=== PATIENT | male | born 1995 | race African-American/Black ===

== ENCOUNTER 2018-01-19 16:43 | Emergency (ER) | payer SELFPAY ==
[~2018-01-19] VITALS: Ht 170.2 cm; Wt 65.0 kg
[~2018-01-19 16:43] MED LIST: ALLERGY MEDS; FLEX10TA PO
[2018-01-19 16:51] VITALS: BP 133/67; PULSE 90; RESP 20; TEMP 98.4; O2SAT 100
--- NOTE | 2018-01-19 17:11 | PD ---
HPI Chief Complaint: Edema Time Seen by Provider: 17:10 Travel History International Travel<30 days: No Contact w/Intl Traveler<30days: No Traveled to known affect area: No History of Present Illness HPI 22-year-old male presents emergency department for evaluation of reddened and swollen left foot. Patient does not offer any information as to how long it has been like this. He tells me he would just like it checked out. He does not answer any more my questions. PFSH Past Medical History ADD: Yes ADHD: Yes Developmental Delay: No Diminished Hearing: No Psychiatric: Yes Respiratory: Yes (RAD) Immunizations Current: Yes Social History Alcohol Use: No Tobacco Use: No Substance Use: No Allergies-Medications (Allergen,Severity, Reaction): Coded Allergies: No Known Allergies (Verified , 08/07/12) Reported Meds & Prescriptions Reported Meds & Active Scripts Active Flexeril (Cyclobenzaprine HCl) 10 Mg Tab 10 Mg PO BID 7 Days Reported [Allergy Meds] Review of Systems Except as stated in HPI: all other systems reviewed are Neg Physical Exam Narrative This is a well-nourished male patient with a bizarre affect but in no acute distress. There is mild erythema on the left dorsal foot. It appears without deformity. Patient appears with a normal heart rate and even respirations. He speaks clearly. Data Data Last Documented VS Vital Signs Date Time Temp Pulse Resp B/P (MAP) Pulse Ox O2 Delivery O2 Flow Rate FiO2 01/19/18 16:51 98.4 90 20 133/67 (89) 100 MDM Medical Decision Making Medical Screen Exam Complete: Yes Emergency Medical Condition: Yes Medical Record Reviewed: Yes Differential Diagnosis Gout versus arthritis versus contusion versus fracture Narrative Course 22-year-old male presents emergency department for evaluation left foot swelling. Patient does have a red swollen foot. He offers little information. Prior to complete workout, patient decides to leave. AMA: The risks of leaving against medical advice without further evaluation treatment were discussed with the patient. These risks include cardiac dysfunction, cardiac dysrhythmia, possible heart attack, possible stroke or . The patient indicated understanding of these risks and appeared to have the capacity to make this decision. Diagnosis Primary Impression: Edema of foot Disposition: 07 AGAINST MEDICAL ADVICE Condition: Stable Domi Castellano January 19, 2018 17:11
== END 2018-01-19 17:10 | disposition left against medical advice (07) ==
LOC: NEPK 16:43
DX: R60.0 Localized edema (principal)
CPT/HCPCS: 99281